=== PATIENT | female | born 1950 | race Caucasian/White ===

== ENCOUNTER 2016-09-25 09:29 | Inpatient (IN) | payer MEDICARE ==
[~2016-09-25 09:29] MED LIST: ALPRAZOLAM0.5 MG PO; ALPRAZOLAM1 MG PO; ANTIVERT25 MG PO; BACITRACIN OINTM1 GM EXT; BACTRIM DS TABL1 TAB PO; BACTRIM DS1 TA1 PO; CEFPROZIL500 MG PO; CENTRUM SILVER1 TA PO; CEPHALEXIN500 MG PO; COL-RITE100 MG PO; COLACE; COLACE100 MG PO; CYCLOBENZAPRINE10 M1 PO; DAPTOMYCIN IV; DIFLUCAN200 MG PO; DOXEPIN HCL25 MG PO; DULCOLAX10 MG/SUPP PR; GABAPENTIN300 MG PO; GABAPENTIN600 M1 PO; GLUCAGON IN1 MG/1 ML; HUMALOG100 U/ML SQ; HUMULIN R100 U/ML SQ; HYDROCODON-ACE1 EAC7 PO; HYDROCODONE/APA1 TA; IBUPROFEN200 M1 PO; INSULIN REGULAR HUMAN SC; KEFLEX500 M1 PO; LEVAQUIN500 MG PO; LEVAQUIN750 MG PO; LORTAB 10/500 T1 TAB; MACROBID100 MG/CA1 PO; MIRALAX; MIRALAX12 EA PO; MIRALAX17 G1 PO; MIRALAX17 GM PO; MOBIC7.5 M1 PO; MULTIVITAMIN1 TAB PO; NEURONTIN300 MG PO; NORCO 10-325 T1 EACH PO; NORCO 10/325 TA1 TAB PO; NORCO 10/3251 TA1 PO; NORCO 10/3251 TAB PO; NORCO 5/325 TAB1 TAB PO; NORCO 5/3251 TA1 PO; NORCO 5/3251 TAB PO; NORVASC10 M1 PO; NOVOLIN R100 U/ML SC; NOVOLIN R100 UNIT/1 SC; NOVOLIN-R100 UNITS/ IM; NOVOLIN-R100 UNITS/ SC; OXYCODONE/APAP PO; QUETIAPINE FUM100 MG PO; QUETIAPINE FUMA50 MG PO; REGLAN10 MG; REMERON15 MG PO; SANTYL30 GM TP; SILVADENE20 GM TP; SULFAMYLON SOL250 M1 EXT; SULFAMYLON453.6 GM TP; TRAMADOL HCL50 M2 PO; TYGACIL50 MG/VIAL IV; TYLENOL325 MG PO; UNKNOWN ANTIBIOTIC; VIBRAMYCIN100 MG PO; XANAX1 MG PO; ZOFRAN ODT4 MG/UDTAB; ZOFRAN ODT4 MG/UDTAB PO; [UNRECOGNIZED DRUG - OTHER]; [UNRECOGNIZED DRUG - OTHER] SC; hydrocodone
[2016-09-25 11:10] LABS: BASO % 0.4 % (0-2); BASO ABSOLUTE COUNT 0.1 tho/cmm (0.0-0.2); EOS % 0.4 % (0-7); EOSINOPHIL ABSOLUTE COUNT 0.1 tho/cmm (0.0-0.7); HCT-HEMATOCRIT 41.5 % (34.0-49.0); HGB-HEMOGLOBIN 14.6 gm/dl (12.0-15.5); IMMATURE GRANULOCYTES ABSOLUTE 0.27 tho/cmm (0-0.03); IMMATURE GRANULOCYTES PERCENT 1.3 % (0-0.3); LYMPH % 6.4 % (20-45); LYMPH ABSOLUTE COUNT 1.4 tho/cmm (0.8-4.5); MCH (MEAN CORPUSCULAR HGB) 30.4 pg (28.0-32.0); MCHC MEAN CORPUSCULAR HGB CONC 35.2 % (32.0-36.0); MCV (MEAN CELL VOLUME) 86.3 fl (82.0-96.0); MEAN PLATELET VOLUME 9.1 cmc (9.4-12.4); MONOCYTE ABSOLUTE COUNT 1.1 tho/cmm (0.0-1.2); NEUTROPHIL ABSOLUTE COUNT 18.4 tho/cmm (1.6-8.0); NEUTROPHIL-AUTOMATED 18.4 tho/cmm (1.6-8.0); NEUTROPHILS % 86.5 % (40-80); PLATELET COUNT 377 tho/cmm (150-450); RED BLOOD COUNT 4.81 mil/cmm (4.00-5.20); RED CELL DISTRIBUTION WIDTH 12.3 % (12.4-16.4); WHITE BLOOD COUNT 21.3 tho/cmm (4.0-10.0)
[2016-09-25 11:31] LABS: ALB/GLOB RATIO 0.4 (0.8-2.0); ALBUMIN 2.6 g/dl (3.5-5.0); ALCOHOL (ETOH) <10 mg/dl (<10); ALKALINE PHOSPHATASE 111 U/L (33-138); ALT/SGPT 21 U/L (12-78); ANION GAP 23 mmol/L (0-20); AST/SGOT 18 U/L (10-40); BILIRUBIN,TOTAL 0.5 mg/dl (0-1.5); BLOOD UREA NITROGEN 11 mg/dl (6-24); CARBON DIOXIDE-VENOUS 19 mmol/L (22-32); CHLORIDE 94 mmol/l (96-110); CREATININE 0.98 mg/dl (0.50-1.10); GLUCOSE 219 mg/dL (70-110); POTASSIUM 3.8 mmol/L (3.7-5.1); SODIUM 132 mmol/L (135-145); eGFR VALUE FOR BLACK 69 mL/Min
[2016-09-25] MEDS ORDERED: COLACE100 M1 PO (11:44)
[2016-09-25 16:45] LABS: INR 1.4 INR (0.9-1.1); PROTHROMBIN TIME 16.3 SECONDS (9.0-13.6)
[2016-09-25 19:53] LABS: URINE BILIRUBIN NEGATIVE (NEG); URINE BLOOD MODERATE (NEG); URINE GLUCOSE (UA) MODERATE (NEG); URINE KETONE LARGE (NEG); URINE LEUKOCYTE ESTERASE POSITIVE (NEG); URINE NITRITE NEGATIVE (NEG); URINE PH 6.5 (5.0-8.0); URINE PROTEIN MODERATE (NEG)
[2016-09-25 19:55] LABS: URINE APPEARANCE HAZY; URINE COLOR YELLOW
[2016-09-25 20:06] LABS: URINE AMORPHOUS 1+; URINE BACTERIA 1+
[2016-09-26 05:26] LABS: BASO % 0.3 % (0-2); BASO ABSOLUTE COUNT 0.1 tho/cmm (0.0-0.2); EOS % 1.4 % (0-7); EOSINOPHIL ABSOLUTE COUNT 0.3 tho/cmm (0.0-0.7); HCT-HEMATOCRIT 31.6 % (34.0-49.0); IMMATURE GRANULOCYTES ABSOLUTE 0.13 tho/cmm (0-0.03); IMMATURE GRANULOCYTES PERCENT 0.7 % (0-0.3); LYMPH % 8.5 % (20-45); LYMPH ABSOLUTE COUNT 1.6 tho/cmm (0.8-4.5); MCH (MEAN CORPUSCULAR HGB) 29.6 pg (28.0-32.0); MCHC MEAN CORPUSCULAR HGB CONC 34.8 % (32.0-36.0); MCV (MEAN CELL VOLUME) 85.2 fl (82.0-96.0); MEAN PLATELET VOLUME 8.8 cmc (9.4-12.4); MONO % 9.3 % (0-12); MONOCYTE ABSOLUTE COUNT 1.7 tho/cmm (0.0-1.2); NEUTROPHIL ABSOLUTE COUNT 14.9 tho/cmm (1.6-8.0); NEUTROPHIL-AUTOMATED 14.9 tho/cmm (1.6-8.0); NEUTROPHILS % 79.8 % (40-80); PLATELET COUNT 282 tho/cmm (150-450); RED BLOOD COUNT 3.71 mil/cmm (4.00-5.20); RED CELL DISTRIBUTION WIDTH 12.5 % (12.4-16.4); WHITE BLOOD COUNT 18.7 tho/cmm (4.0-10.0)
[2016-09-26 05:37] LABS: ANION GAP 14 mmol/L (0-20); BLOOD UREA NITROGEN 9 mg/dl (6-24); C-REACTIVE PROTEIN 15.5 mg/dl (0-0.9); CALCIUM 7.8 mg/dl (8.5-10.5); CARBON DIOXIDE-VENOUS 24 mmol/L (22-32); CHLORIDE 105 mmol/l (96-110); CREATININE 0.72 mg/dl (0.50-1.10); GLUCOSE 137 mg/dL (70-110); POTASSIUM 3.6 mmol/L (3.7-5.1); SODIUM 139 mmol/L (135-145); eGFR VALUE FOR BLACK >90 mL/Min
[2016-09-27 04:51] LABS: BASO % 0.5 % (0-2); BASO ABSOLUTE COUNT 0.1 tho/cmm (0.0-0.2); EOS % 2.2 % (0-7); EOSINOPHIL ABSOLUTE COUNT 0.3 tho/cmm (0.0-0.7); HCT-HEMATOCRIT 33.9 % (34.0-49.0); HGB-HEMOGLOBIN 12.1 gm/dl (12.0-15.5); IMMATURE GRANULOCYTES ABSOLUTE 0.13 tho/cmm (0-0.03); IMMATURE GRANULOCYTES PERCENT 0.9 % (0-0.3); LYMPH % 11.9 % (20-45); LYMPH ABSOLUTE COUNT 1.8 tho/cmm (0.8-4.5); MCHC MEAN CORPUSCULAR HGB CONC 35.7 % (32.0-36.0); MCV (MEAN CELL VOLUME) 84.1 fl (82.0-96.0); MEAN PLATELET VOLUME 9.4 cmc (9.4-12.4); MONO % 8.7 % (0-12); MONOCYTE ABSOLUTE COUNT 1.3 tho/cmm (0.0-1.2); NEUTROPHIL ABSOLUTE COUNT 11.5 tho/cmm (1.6-8.0); NEUTROPHIL-AUTOMATED 11.5 tho/cmm (1.6-8.0); NEUTROPHILS % 75.8 % (40-80); PLATELET COUNT 317 tho/cmm (150-450); RED BLOOD COUNT 4.03 mil/cmm (4.00-5.20); RED CELL DISTRIBUTION WIDTH 12.5 % (12.4-16.4); WHITE BLOOD COUNT 15.1 tho/cmm (4.0-10.0)
[2016-09-27 05:16] LABS: ALB/GLOB RATIO 0.3 (0.8-2.0); ALBUMIN 1.9 g/dl (3.5-5.0); ALKALINE PHOSPHATASE 75 U/L (33-138); ALT/SGPT 16 U/L (12-78); ANION GAP 14 mmol/L (0-20); AST/SGOT 14 U/L (10-40); BILIRUBIN,TOTAL 0.4 mg/dl (0-1.5); BLOOD UREA NITROGEN 4 mg/dl (6-24); CALCIUM 7.9 mg/dl (8.5-10.5); CARBON DIOXIDE-VENOUS 26 mmol/L (22-32); CHLORIDE 100 mmol/l (96-110); CREATININE 0.72 mg/dl (0.50-1.10); GLUCOSE 156 mg/dL (70-110); SODIUM 137 mmol/L (135-145); eGFR VALUE FOR BLACK >90 mL/Min
[2016-09-28 05:22] LABS: HGB-HEMOGLOBIN 12.2 gm/dl (12.0-15.5); PLATELET COUNT 329 tho/cmm (150-450)
[2016-09-28 05:49] LABS: POTASSIUM 3.3 mmol/L (3.7-5.1)
[2016-09-28 05:52] LABS: C-REACTIVE PROTEIN 5.9 mg/dl (0-0.9)
[2016-09-29 05:47] LABS: BASO % 0.5 % (0-2); BASO ABSOLUTE COUNT 0.1 tho/cmm (0.0-0.2); EOS % 2.1 % (0-7); EOSINOPHIL ABSOLUTE COUNT 0.3 tho/cmm (0.0-0.7); HCT-HEMATOCRIT 36.6 % (34.0-49.0); HGB-HEMOGLOBIN 12.7 gm/dl (12.0-15.5); IMMATURE GRANULOCYTES ABSOLUTE 0.12 tho/cmm (0-0.03); IMMATURE GRANULOCYTES PERCENT 0.8 % (0-0.3); LYMPH % 20.4 % (20-45); MCH (MEAN CORPUSCULAR HGB) 29.5 pg (28.0-32.0); MCHC MEAN CORPUSCULAR HGB CONC 34.7 % (32.0-36.0); MCV (MEAN CELL VOLUME) 85.1 fl (82.0-96.0); MONO % 7.4 % (0-12); MONOCYTE ABSOLUTE COUNT 1.1 tho/cmm (0.0-1.2); NEUTROPHIL ABSOLUTE COUNT 10.2 tho/cmm (1.6-8.0); NEUTROPHIL-AUTOMATED 10.2 tho/cmm (1.6-8.0); NEUTROPHILS % 68.8 % (40-80); PLATELET COUNT 351 tho/cmm (150-450); RED CELL DISTRIBUTION WIDTH 12.9 % (12.4-16.4); WHITE BLOOD COUNT 14.8 tho/cmm (4.0-10.0)
[2016-09-29 06:06] LABS: ALB/GLOB RATIO 0.4 (0.8-2.0); ALBUMIN 2.2 g/dl (3.5-5.0); ALKALINE PHOSPHATASE 83 U/L (33-138); ALT/SGPT 26 U/L (12-78); ANION GAP 13 mmol/L (0-20); AST/SGOT 41 U/L (10-40); BILIRUBIN,TOTAL 0.4 mg/dl (0-1.5); BLOOD UREA NITROGEN 6 mg/dl (6-24); C-REACTIVE PROTEIN 3.4 mg/dl (0-0.9); CALCIUM 8.1 mg/dl (8.5-10.5); CARBON DIOXIDE-VENOUS 26 mmol/L (22-32); CHLORIDE 99 mmol/l (96-110); CREATININE 1.01 mg/dl (0.50-1.10); GLUCOSE 190 mg/dL (70-110); POTASSIUM 3.3 mmol/L (3.7-5.1); SODIUM 135 mmol/L (135-145); eGFR VALUE FOR BLACK 67 mL/Min
[2016-09-30 06:31] LABS: BASO % 0.4 % (0-2); BASO ABSOLUTE COUNT 0.1 tho/cmm (0.0-0.2); EOS % 2.5 % (0-7); EOSINOPHIL ABSOLUTE COUNT 0.4 tho/cmm (0.0-0.7); HCT-HEMATOCRIT 33.5 % (34.0-49.0); HGB-HEMOGLOBIN 11.3 gm/dl (12.0-15.5); IMMATURE GRANULOCYTES ABSOLUTE 0.12 tho/cmm (0-0.03); IMMATURE GRANULOCYTES PERCENT 0.7 % (0-0.3); LYMPH % 23.2 % (20-45); LYMPH ABSOLUTE COUNT 3.8 tho/cmm (0.8-4.5); MCHC MEAN CORPUSCULAR HGB CONC 33.7 % (32.0-36.0); MCV (MEAN CELL VOLUME) 86.1 fl (82.0-96.0); MONO % 7.7 % (0-12); MONOCYTE ABSOLUTE COUNT 1.3 tho/cmm (0.0-1.2); NEUTROPHIL ABSOLUTE COUNT 10.8 tho/cmm (1.6-8.0); NEUTROPHIL-AUTOMATED 10.8 tho/cmm (1.6-8.0); NEUTROPHILS % 65.5 % (40-80); PLATELET COUNT 331 tho/cmm (150-450); RED BLOOD COUNT 3.89 mil/cmm (4.00-5.20); RED CELL DISTRIBUTION WIDTH 13.2 % (12.4-16.4); WHITE BLOOD COUNT 16.5 tho/cmm (4.0-10.0)
[2016-09-30 06:39] LABS: ANION GAP 8 mmol/L (0-20); BLOOD UREA NITROGEN 8 mg/dl (6-24); C-REACTIVE PROTEIN 1.9 mg/dl (0-0.9); CALCIUM 8.3 mg/dl (8.5-10.5); CARBON DIOXIDE-VENOUS 30 mmol/L (22-32); CHLORIDE 104 mmol/l (96-110); CREATININE 0.91 mg/dl (0.50-1.10); GLUCOSE 195 mg/dL (70-110); SODIUM 138 mmol/L (135-145); eGFR VALUE FOR BLACK 76 mL/Min
[2016-09-30 15:55] LABS: URINE BILIRUBIN NEGATIVE (NEG); URINE BLOOD SMALL (NEG); URINE GLUCOSE (UA) MODERATE (NEG); URINE KETONE NEGATIVE (NEG); URINE LEUKOCYTE ESTERASE POSITIVE (NEG); URINE NITRITE NEGATIVE (NEG); URINE PROTEIN SMALL (NEG)
[2016-09-30 15:58] LABS: URINE APPEARANCE CLOUDY; URINE COLOR YELLOW
[2016-09-30 16:02] LABS: URINE WBC 15-20 /[HPF] (0-5)
[2016-10-02 06:10] LABS: BASO % 0.6 % (0-2); BASO ABSOLUTE COUNT 0.1 tho/cmm (0.0-0.2); EOS % 3.9 % (0-7); EOSINOPHIL ABSOLUTE COUNT 0.6 tho/cmm (0.0-0.7); HCT-HEMATOCRIT 31.1 % (34.0-49.0); HGB-HEMOGLOBIN 10.5 gm/dl (12.0-15.5); IMMATURE GRANULOCYTES ABSOLUTE 0.13 tho/cmm (0-0.03); IMMATURE GRANULOCYTES PERCENT 0.8 % (0-0.3); LYMPH % 28.8 % (20-45); LYMPH ABSOLUTE COUNT 4.7 tho/cmm (0.8-4.5); MCH (MEAN CORPUSCULAR HGB) 29.7 pg (28.0-32.0); MCHC MEAN CORPUSCULAR HGB CONC 33.8 % (32.0-36.0); MCV (MEAN CELL VOLUME) 87.9 fl (82.0-96.0); MEAN PLATELET VOLUME 8.7 cmc (9.4-12.4); MONO % 6.9 % (0-12); MONOCYTE ABSOLUTE COUNT 1.1 tho/cmm (0.0-1.2); NEUTROPHIL ABSOLUTE COUNT 9.6 tho/cmm (1.6-8.0); NEUTROPHIL-AUTOMATED 9.6 tho/cmm (1.6-8.0); PLATELET COUNT 341 tho/cmm (150-450); RED BLOOD COUNT 3.54 mil/cmm (4.00-5.20); RED CELL DISTRIBUTION WIDTH 13.2 % (12.4-16.4); WHITE BLOOD COUNT 16.3 tho/cmm (4.0-10.0)
[2016-10-02 06:40] LABS: ALBUMIN 2.1 g/dl (3.5-5.0); ANION GAP 11 mmol/L (0-20); BLOOD UREA NITROGEN 18 mg/dl (6-24); CALCIUM 8.4 mg/dl (8.5-10.5); CARBON DIOXIDE-VENOUS 32 mmol/L (22-32); CHLORIDE 102 mmol/l (96-110); CREATININE 0.95 mg/dl (0.50-1.10); GLUCOSE 225 mg/dL (70-110); PHOSPHOROUS 3.6 mg/dl (2.5-4.9); SODIUM 141 mmol/L (135-145); eGFR VALUE FOR BLACK 72 mL/Min
[2016-10-02 06:45] LABS: POTASSIUM 3.8 mmol/L (3.7-5.1)
[2016-10-03 05:31] LABS: BASO % 0.6 % (0-2); BASO ABSOLUTE COUNT 0.1 tho/cmm (0.0-0.2); EOS % 4.4 % (0-7); EOSINOPHIL ABSOLUTE COUNT 0.6 tho/cmm (0.0-0.7); HCT-HEMATOCRIT 31.7 % (34.0-49.0); HGB-HEMOGLOBIN 10.5 gm/dl (12.0-15.5); IMMATURE GRANULOCYTES ABSOLUTE 0.11 tho/cmm (0-0.03); IMMATURE GRANULOCYTES PERCENT 0.8 % (0-0.3); LYMPH % 31.6 % (20-45); LYMPH ABSOLUTE COUNT 4.5 tho/cmm (0.8-4.5); MCH (MEAN CORPUSCULAR HGB) 29.6 pg (28.0-32.0); MCHC MEAN CORPUSCULAR HGB CONC 33.1 % (32.0-36.0); MCV (MEAN CELL VOLUME) 89.3 fl (82.0-96.0); MEAN PLATELET VOLUME 8.8 cmc (9.4-12.4); MONO % 9.6 % (0-12); MONOCYTE ABSOLUTE COUNT 1.4 tho/cmm (0.0-1.2); NEUTROPHIL ABSOLUTE COUNT 7.5 tho/cmm (1.6-8.0); NEUTROPHIL-AUTOMATED 7.5 tho/cmm (1.6-8.0); PLATELET COUNT 362 tho/cmm (150-450); RED BLOOD COUNT 3.55 mil/cmm (4.00-5.20); RED CELL DISTRIBUTION WIDTH 13.5 % (12.4-16.4); WHITE BLOOD COUNT 14.3 tho/cmm (4.0-10.0)
[2016-10-21] MEDS ORDERED: COLACE100 M1 PO (15:23)
[2016-10-21] MEDS ORDERED: VITAMIN C500 M3 PO (15:23)
[2016-10-21] MEDS ORDERED: FEOSOL325 M1 PO (15:23)
[2016-10-21] MEDS ORDERED: COMPLETE MULTI1 EAC1 PO (15:23)
[2016-10-21] MEDS ORDERED: NYAMYC15 GM TOP (15:24)
[2016-10-21] MEDS ORDERED: COREG6.25 M1 PO (15:24)
[2016-10-21] MEDS ORDERED: CULTURELLE1 EAC2 PO (15:24)
[2016-10-21] MEDS ORDERED: LOTRIMIN AF12 GM TOP (15:24)
[2016-10-21] MEDS ORDERED: BANOPHEN50 MG PO (15:25)
[2016-10-21] MEDS ORDERED: ULTRAM50 M1 PO (15:25)
[2016-10-21] MEDS ORDERED: PERCOCET 5-3251 EACH PO (15:25)
[2016-10-21] MEDS ORDERED: VANCOMYCIN500 MG/VIA IV (15:26)
[2016-10-21] MEDS ORDERED: NOVOLOG100 UNITS/ SC (15:26)
[2016-10-21] MEDS ORDERED: HUMULIN R100 UNITS/ SC (15:27)
[2016-11-04] MEDS ORDERED: VITAMIN C500 M3 PO (15:42)
[2016-11-04] MEDS ORDERED: VIBRAMYCIN100 M1 PO (15:44)
[2017-02-10] MEDS ORDERED: REFRESH LIQUIGE15 ML EACH EYE (13:40)
[2017-02-10] MEDS ORDERED: NOVOLOG100 UNITS/ SC (13:41)
[2017-02-24] MEDS ORDERED: LANTUS100 UNITS/ SC (14:15)
== END 2016-10-03 15:47 | DRG 853 ==
LOC: EDMED 09:29 → EMR2 15:20 → PCUB 15:39 → 5WE 09-27 13:54 → ORE 09-29 07:20 → 5WE 09-29 08:45
PROVIDERS: Family Medicine; Internal Medicine Infectious Disease; Nurse Practitioner Acute Care; Physician Assistant; ADMIT Internal Medicine
PROC: 05H533Z Insertion of Infusion Device into Right Subclavian Vein, Percutaneous Approach (ICD-10-PCS; 2016-09-25)
PROC: 0QBM0ZZ Excision of Left Tarsal, Open Approach (ICD-10-PCS; principal; 2016-09-29)
PROC: 3E1U38Z Irrigation of Joints using Irrigating Substance, Percutaneous Approach (ICD-10-PCS; 2016-09-29)
PROC: 0QBM0ZZ Excision of Left Tarsal, Open Approach (ICD-10-PCS; 2016-10-01)
DX: A40.8 Other streptococcal sepsis (principal); G92 Toxic encephalopathy; R65.20 Severe sepsis without septic shock; L89.893 Pressure ulcer of other site, stage 3; E11.42 Type 2 diabetes mellitus with diabetic polyneuropathy; E11.621 Type 2 diabetes mellitus with foot ulcer; D62 Acute posthemorrhagic anemia; L02.612 Cutaneous abscess of left foot; M86.8X7 Other osteomyelitis, ankle and foot; L03.116 Cellulitis of left lower limb; B95.62 Methicillin resistant Staphylococcus aureus infection as the cause of diseases classified elsewhere; D63.8 Anemia in other chronic diseases classified elsewhere; E11.65 Type 2 diabetes mellitus with hyperglycemia; Z79.4 Long term (current) use of insulin; Z91.19 Patient's noncompliance with other medical treatment and regimen; G89.29 Other chronic pain; Z88.0 Allergy status to penicillin; Z91.09 Other allergy status, other than to drugs and biological substances; Z89.421 Acquired absence of other right toe(s); Z88.1 Allergy status to other antibiotic agents; Z88.8 Allergy status to other drugs, medicaments and biological substances; Z88.2 Allergy status to sulfonamides; E87.6 Hypokalemia; R19.7 Diarrhea, unspecified
CPT/HCPCS: C1751; G0480; J1650; J1815; J1956; J2250; J2405; J3010; J3370; J7030; J7050

== ENCOUNTER 2016-10-17 09:58 | Observation (INO) | payer MEDICARE ==
[~2016-10-17 09:58] MED LIST changes: +COLACE100 M1 PO
[2016-10-17] MEDS ORDERED: NORMAL SALINE FL2 ML IV (10:33)
[2016-10-17] MEDS ORDERED: PERCOCET 5-3251 EACH PO (10:34)
[2016-10-17] MEDS ORDERED: CATHFLO ACTIVASE2 MG IV (10:34)
[2016-10-17] MEDS ORDERED: CULTURELLE1 EAC1 PO (10:35)
[2016-10-17] MEDS ORDERED: BISCOLAX10 MG PR (10:35)
[2016-10-17] MEDS ORDERED: CITRATE OF MAG300 M1 PO (10:36)
[2016-10-17] MEDS ORDERED: MULTIVITAMINS1 EAC6 PO (10:37)
[2016-10-17] MEDS ORDERED: ENEMA133 M4 PR (10:37)
[2016-10-17] MEDS ORDERED: MILK OF MAGNESIA PO (10:37)
[2016-10-17] MEDS ORDERED: ULTRAM50 M1 PO (10:37)
[2016-10-17] MEDS ORDERED: VITAMIN C500 M3 PO (10:37)
[2016-10-17] MEDS ORDERED: DOCUSATE SODIU100 M3 PO (10:38)
[2016-10-17] MEDS ORDERED: BANOPHEN50 MG PO (10:39)
[2016-10-17] MEDS ORDERED: MAPAP325 M2 PO (10:39)
[2016-10-17] MEDS ORDERED: CYCLOBENZAPRINE10 M1 PO (10:40)
[2016-10-17] MEDS ORDERED: ONDANSETRON ODT4 M1 SL (10:40)
[2016-10-17] MEDS ORDERED: GLUCAGEN1 MG/1 ML IM (10:41)
[2016-10-17] MEDS ORDERED: CLOTRIMAZOLE VG (10:42)
[2016-10-17] MEDS ORDERED: NYSTOP60 GM EXT (10:43)
[2016-10-17] MEDS ORDERED: HUMULIN R100 UNITS/ SC (10:44)
[2016-10-17] MEDS ORDERED: NOVOLOG FL100 UNIT/2 SC (10:45)
[2016-10-17] MEDS ORDERED: VANCOMYCIN HCL750 M1 IV (10:46)
[2016-10-17] MEDS ORDERED: FEROSUL325 M1 PO (10:49)
[2016-10-17 11:57] LABS: BASO % 0.8 % (0-2); BASO ABSOLUTE COUNT 0.1 tho/cmm (0.0-0.2); EOS % 2.7 % (0-7); EOSINOPHIL ABSOLUTE COUNT 0.3 tho/cmm (0.0-0.7); HCT-HEMATOCRIT 35.8 % (34.0-49.0); HGB-HEMOGLOBIN 11.9 gm/dl (12.0-15.5); IMMATURE GRANULOCYTES ABSOLUTE 0.02 tho/cmm (0-0.03); IMMATURE GRANULOCYTES PERCENT 0.2 % (0-0.3); LYMPH % 19.4 % (20-45); LYMPH ABSOLUTE COUNT 2.1 tho/cmm (0.8-4.5); MCH (MEAN CORPUSCULAR HGB) 30.2 pg (28.0-32.0); MCHC MEAN CORPUSCULAR HGB CONC 33.2 % (32.0-36.0); MCV (MEAN CELL VOLUME) 90.9 fl (82.0-96.0); MEAN PLATELET VOLUME 9.6 cmc (9.4-12.4); MONO % 6.5 % (0-12); MONOCYTE ABSOLUTE COUNT 0.7 tho/cmm (0.0-1.2); NEUTROPHIL ABSOLUTE COUNT 7.7 tho/cmm (1.6-8.0); NEUTROPHIL-AUTOMATED 7.7 tho/cmm (1.6-8.0); NEUTROPHILS % 70.4 % (40-80); PLATELET COUNT 254 tho/cmm (150-450); RED BLOOD COUNT 3.94 mil/cmm (4.00-5.20); RED CELL DISTRIBUTION WIDTH 14.2 % (12.4-16.4)
[2016-10-17 12:27] LABS: ALB/GLOB RATIO 0.6 (0.8-2.0); ALKALINE PHOSPHATASE 61 U/L (33-138); ALT/SGPT 21 U/L (12-78); ANION GAP 18 mmol/L (0-20); AST/SGOT 13 U/L (10-40); BILIRUBIN,TOTAL 0.5 mg/dl (0-1.5); BLOOD UREA NITROGEN 17 mg/dl (6-24); CALCIUM 8.8 mg/dl (8.5-10.5); CARBON DIOXIDE-VENOUS 24 mmol/L (22-32); CHLORIDE 101 mmol/l (96-110); CREATININE 0.93 mg/dl (0.50-1.10); GLUCOSE 202 mg/dL (70-110); POTASSIUM 4.5 mmol/L (3.7-5.1); SODIUM 138 mmol/L (135-145); eGFR VALUE FOR BLACK 74 mL/Min
[2016-10-18] MEDS ORDERED: NITROGLYCERIN0.4 M2 SL (11:43)
[2016-10-18] MEDS ORDERED: COREG6.25 M1 PO (11:44)
[2016-10-21] MEDS ORDERED: VITAMIN C500 M3 PO (15:23)
[2016-10-21] MEDS ORDERED: COMPLETE MULTI1 EAC1 PO (15:23)
[2016-10-21] MEDS ORDERED: FEOSOL325 M1 PO (15:23)
[2016-10-21] MEDS ORDERED: COLACE100 M1 PO (15:23)
[2016-10-21] MEDS ORDERED: CULTURELLE1 EAC2 PO (15:24)
[2016-10-21] MEDS ORDERED: COREG6.25 M1 PO (15:24)
[2016-10-21] MEDS ORDERED: NYAMYC15 GM TOP (15:24)
[2016-10-21] MEDS ORDERED: LOTRIMIN AF12 GM TOP (15:24)
[2016-10-21] MEDS ORDERED: ULTRAM50 M1 PO (15:25)
[2016-10-21] MEDS ORDERED: PERCOCET 5-3251 EACH PO (15:25)
[2016-10-21] MEDS ORDERED: BANOPHEN50 MG PO (15:25)
[2016-10-21] MEDS ORDERED: VANCOMYCIN500 MG/VIA IV (15:26)
[2016-10-21] MEDS ORDERED: NOVOLOG100 UNITS/ SC (15:26)
[2016-10-21] MEDS ORDERED: HUMULIN R100 UNITS/ SC (15:27)
[2016-11-04] MEDS ORDERED: VITAMIN C500 M3 PO (15:42)
[2016-11-04] MEDS ORDERED: VIBRAMYCIN100 M1 PO (15:44)
[2017-02-10] MEDS ORDERED: REFRESH LIQUIGE15 ML EACH EYE (13:40)
[2017-02-10] MEDS ORDERED: NOVOLOG100 UNITS/ SC (13:41)
[2017-02-24] MEDS ORDERED: LANTUS100 UNITS/ SC (14:15)
== END 2016-10-18 13:20 ==
LOC: EDMED → EDBD 09:58 → EMR2 16:45 → CAR1 19:55
PROVIDERS: Emergency Medicine; Internal Medicine Cardiovascular Disease; Nurse Practitioner Family; ADMIT Internal Medicine Cardiovascular Disease
PROC: 3C1ZX8Z Irrigation of Indwelling Device using Irrigating Substance, External Approach (ICD-10-PCS; principal; 2016-10-17)
DX: R07.9 Chest pain, unspecified (principal); E11.621 Type 2 diabetes mellitus with foot ulcer; I83.90 Asymptomatic varicose veins of unspecified lower extremity; M54.9 Dorsalgia, unspecified; T82.868A Thrombosis due to vascular prosthetic devices, implants and grafts, initial encounter; Z79.2 Long term (current) use of antibiotics; Z79.4 Long term (current) use of insulin; Z79.899 Other long term (current) drug therapy; Z88.0 Allergy status to penicillin; Z88.1 Allergy status to other antibiotic agents; Z88.8 Allergy status to other drugs, medicaments and biological substances; Z91.010 Allergy to peanuts; Z91.013 Allergy to seafood; Z91.018 Allergy to other foods; Z91.048 Other nonmedicinal substance allergy status; Z87.891 Personal history of nicotine dependence; Z82.49 Family history of ischemic heart disease and other diseases of the circulatory system; Z83.3 Family history of diabetes mellitus; Z90.49 Acquired absence of other specified parts of digestive tract; Z90.89 Acquired absence of other organs; Z98.890 Other specified postprocedural states
CPT/HCPCS: A9500; C8929; G0378; J1815; J2785; J2997; J3370